=== PATIENT | female | born 1980 | race Caucasian/White ===

== ENCOUNTER → 2017-02-07 | Outpatient (CLI) | payer OTHER ==
--- NOTE | 2017-02-07 22:41 | MR ---
EXAMINATION TYPE: MR cervical spine wo con DATE OF EXAM: 02/07/2017 COMPARISON: NONE HISTORY: 36-year-old female Neck pain TECHNIQUE: Multiplanar, multisequence images of the cervical spine were acquired. FINDINGS: No craniocervical junction abnormality, predental space widening, or prevertebral soft tissue swellin g. Normal alignment of the cervical spine. No suspicious bone marrow placement. Variable mild intervertebral disc desiccation with minimal bulging discs. Scattered mild facet arthropathy is also noted. No large focal disc herniation. No significant spinal canal stenosis. No significant neuroforaminal stenosis appreciated. Normal course, caliber, and signal intensity of the cervical cord. No prevertebral or paravertebral soft tissue abnormality. IMPRESSION: Minimal early degenerative changes of the intervertebral disks characterized by mild disc desiccation and slight posterior disc bulges. Additional scattered mild facet degenerative change. No focal disc herniation or significant spinal canal or neural foraminal stenosis.
== END | disposition home or self-care (01) ==
LOC: RADMRIMAIN 11:58
PROVIDERS: ATTEND Psychiatry & Neurology Neurology
DX: M50.20 Other cervical disc displacement, unspecified cervical region (principal); M47.812 Spondylosis without myelopathy or radiculopathy, cervical region
CPT/HCPCS: 72141